=== PATIENT | female | born 1940 | race Caucasian/White ===

== ENCOUNTER 2018-03-17 20:06 | Emergency (ER) | payer MEDICARE ==
[~2018-03-17] VITALS: Ht 160 cm; Wt 52.2 kg
[~2018-03-17 20:06] MED LIST: ATIVAN1 MG PO; B12,B-12,B 12500 MC1 PO; CIPRO500 MG PO; LISINOPRIL5 MG PO; NKHM; ZOCOR20 MG PO
[2018-03-17] MEDS ORDERED: LISINOPRIL5 MG PO (20:09)
[2018-03-17] MEDS ORDERED: PREPARATION H CR1 OZ R (21:25)
[2018-03-17] MEDS ORDERED: MIRALAX POWDER17 G1 PO (22:27)
== END 2018-03-17 23:26 | disposition home or self-care (01) ==
LOC: ED 20:06
DX: K59.09 Other constipation (principal); K64.4 Residual hemorrhoidal skin tags; F17.200 Nicotine dependence, unspecified, uncomplicated; Z90.710 Acquired absence of both cervix and uterus; Z98.890 Other specified postprocedural states; Z79.899 Other long term (current) drug therapy; Z88.6 Allergy status to analgesic agent; Z88.5 Allergy status to narcotic agent; Z88.8 Allergy status to other drugs, medicaments and biological substances

== ENCOUNTER → 2019-12-09 | Outpatient (CLI) | payer MEDICARE ==
[~2019-12-09] MED LIST changes: +MIRALAX POWDER17 G1 PO; +PREPARATION H CR1 OZ R
[2019-12-09 16:37] LABS: BASO # 0.1 10*3/uL (0.0-0.1); BASO % 0.6 % (0.0-1.0); EOS # 0.1 10*3/uL (0.0-0.4); EOS % 1.2 % (1.0-4.0); HEMATOCRIT 46.4 % (37.0-47.0); HEMOGLOBIN 15.1 g/dl (12.0-16.0); LYMPH # 2.5 10*3/uL (1.3-4.4); LYMPH % 23.5 % (27.0-41.0); MEAN CELL VOLUME 93.9 fl (81.0-99.0); MEAN CORPUSCULAR HGB 30.6 pg (27.0-31.0); MEAN CORPUSCULAR HGB CONC 32.5 g/dl (33.0-37.0); MEAN PLATELET VOLUME 9.9 fl (9.6-12.3); MONO # 0.9 10*3/uL (0.1-1.0); MONO % 8.6 % (3.0-9.0); NEUT # 6.9 10*3/uL (2.3-7.9); NEUT % 65.8 % (47.0-73.0); PLATELET COUNT AUTOMATED 233 10*3/uL (130-400); RED BLOOD COUNT 4.94 10*6/uL (4.10-5.10); RED CELL DISTRI WIDTH 15.1 % (0-14.5); WHITE BLOOD COUNT 10.4 10*3/uL (4.8-10.8)
[2019-12-09 17:27] LABS: ALBUMIN 3.7 gm/dl (3.1-4.5); ALKALINE PHOSPHATASE 85 U/L (45-117); BUN 24 mg/dl (7-24); CHLORIDE 108 mmol/L (98-107); CHOLESTEROL 176 mg/dL (<200); CREATININE 0.93 mg/dL (0.55-1.02); HDL CHOLESTEROL 91 mg/dl (40-60); LDL CHOLESTEROL 66 mg/dL (9-159); POTASSIUM 3.9 mmol/L (3.5-5.1); SGOT/AST 19 IU/L (3-35); SGPT/ALT 22 U/L (12-78); SODIUM 141 mmol/L (136-145); TOTAL PROTEIN 7.1 gm/dL (6.4-8.2); TRIGLYCERIDES 95 mg/dl (<150); VLDL CHOLESTEROL 19 mg/dL (6-40)
== END | disposition home or self-care (01) ==
LOC: LAB 16:18
PROVIDERS: Nurse Practitioner Family
DX: E78.6 Lipoprotein deficiency (principal); E55.9 Vitamin D deficiency, unspecified; I10 Essential (primary) hypertension